=== PATIENT | female | born 1970 | race Caucasian/White ===

== ENCOUNTER 2017-10-24 12:37 | Emergency (ER) | payer OTHER ==
[2017-10-24 13:18] VITALS: BP 144/68; PULSE 95; TEMP 98; BMI 33.5
[2017-10-24] MEDS ORDERED: IBUPROFEN 600 MG TABLET (FP) PO ONE ×2 (14:19→14:27)
--- NOTE | 2017-10-24 14:40 | PDOC ---
History of Present Illness - General Chief Complaint: Pain Stated Complaint: LEG PAIN Time Seen by Provider: 10/24/17 14:17 History Source: Patient Exam Limitations: No Limitations - History of Present Illness Initial Comments: 10/24/17 14:32 46-year-old female presents to the emergency room with complaints of left Calf pain and left colbert pain for the past 2 days worsened with ambulation. Patient denies swelling of the leg, redness of the leg, injury to the leg or radiation of pain. Patient also denies recent surgery, or sedentary lifestyle, smoking history, exogenous estrogen usage, or recent travel. Patient also denies any coagulation disorders. Timing/Duration: other (2 days) Severity: mild Associated Symptoms: reports: denies symptoms Past History - Travel Traveled outside of the country in the last 30 days: No - Past Medical History Allergies/Adverse Reactions: Allergies Allergy/AdvReac Type Severity Reaction Status Date / Time No Known Allergies Allergy Verified 10/24/17 13:05 Home Medications: Ambulatory Orders NK [No Known Home Medication] 10/24/17 COPD: No - Suicide/Smoking/Psychosocial Hx Smoking History: Never smoked Have you smoked in the past 12 months: No Information on smoking cessation initiated: No Hx Alcohol Use: No Drug/Substance Use Hx: No Substance Use Type: None Patient Lives Alone: No Lives with/in: spouse/SO Review of Systems - Review of Systems Able to Perform ROS?: Yes Constitutional: No: Symptoms Reported HEENTM: No: Symptoms Reported Respiratory: No: Symptoms reported Musculoskeletal: Yes: Muscle Pain (left calf and colbert) Integumentary: No: Symptoms Reported Neurological: No: Symptoms reported Hematologic/Lymphatic: No: Symptoms Reported *Physical Exam - Vital Signs Last Vital Signs Temp Pulse Resp BP Pulse Ox 98.0 F 95 H 18 144/68 100 10/24/17 13:11 10/24/17 13:11 10/24/17 13:11 10/24/17 13:11 10/24/17 13:11 - Physical Exam General Appearance: Yes: Nourished, Appropriately Dressed. No: Apparent Distress Respiratory/Chest: positive: Lungs Clear, Normal Breath Sounds. negative: Respiratory Distress, Accessory Muscle Use Cardiovascular: positive: Regular Rhythm, Regular Rate. negative: Murmur Extremity: positive: Normal Capillary Refill, Normal Inspection, Normal Range of Motion, Tender (left calf and left tibialis anterior) Integumentary: positive: Normal Color, Warm, Moist (ambulatory) Neurologic: positive: Motor Strength 5/5 ED Treatment Course - RADIOLOGY Radiology Studies Ordered: Category Date Time Status DUPLEX VASCUL US-1 LEG [US] Stat Ultrasound 10/24/17 14:19 Ordered Medical Decision Making - Medical Decision Making 10/24/17 15:10 Patient with left calf and left anterior colbert pain. Patient negative Wells criteria but ordered for DVT study due to patient's clinical presentation.Motrin ordered 10/24/17 15:30 Ultrasound negative for DVT. There is no obvious superficial thrombophlebitis noted. Patient be discharged home with recommendations to take Motrin and apply ice to the affected area along with gentle massage. Patient states feeling better after receiving Motrin *DC/Admit/Observation/Transfer Diagnosis at time of Disposition: Leg pain, left - Discharge Dispostion Disposition: HOME Condition at time of disposition: Improved - Referrals Referrals: Ernie Madrid MD [Primary Care Provider] - - Patient Instructions Printed Discharge Instructions: DI for Leg Pain Additional Instructions: Please take Motrin 600 mg every 8 hours for adequate pain control. May apply ice to the affected area. Also gentle massage may improve symptoms. - Post Discharge Activity
== END 2017-10-24 15:31 | disposition home or self-care (01) ==
LOC: JER 12:37 → JERFT 12:37
DX: M79.662 Pain in left lower leg (principal); M79.1 Myalgia
CPT/HCPCS: 93971-TC; 99281-25

== ENCOUNTER 2018-07-11 18:07 | Emergency (ER) | payer OTHER ==
[2018-07-11 18:22] VITALS: BMI 33.0
--- NOTE | 2018-07-11 19:00 | PDOC ---
History of Present Illness - General Chief Complaint: Vaginal Bleeding Stated Complaint: VAGINAL BLEEDING/9 WKS Time Seen by Provider: 07/11/18 18:59 History Source: Patient, Neon Tube Pumper Used Exam Limitations: Language Barrier - History of Present Illness Initial Comments: 07/11/18 20:03 47-year-old female A0 with no past medical history who is 9 weeks presents to emergency department complaining of vaginal bleeding since 2:30 PM today when she was making food for her son. She states the bleeding started as spotting and she has only used one pad. She admits to clotting. She admits to suprapubic and pelvic pain, which she describes as cramping, radiating to her back, no alleviating or aggravating factors. She was last seen by her OBGYN, Dr. Charles, two weeks ago, that is when she found out she was . Pt denies blood thinner use. OBGYN - Dr. Charles Allergies - NKDA Past History - Past Medical History Allergies/Adverse Reactions: Allergies Allergy/AdvReac Type Severity Reaction Status Date / Time No Known Allergies Allergy Verified 07/11/18 18:20 Home Medications: Ambulatory Orders NK [No Known Home Medication] 10/24/17 COPD: No CHF: No Other medical history: - Suicide/Smoking/Psychosocial Hx Smoking History: Never smoked Have you smoked in the past 12 months: No Information on smoking cessation initiated: No Hx Alcohol Use: No Drug/Substance Use Hx: No Substance Use Type: None Review of Systems - Review of Systems Able to Perform ROS?: Yes Comments:: 07/11/18 20:04 General: denies fever, chills, night sweats, generalized weakness. HEENT: denies sore throat, rhinorrhea, ear pain. Heart: denies chest pain, palpitations, syncope, lower extremity swelling, diaphoresis. Respiratory: denies shortness of breath, cough, sputum production, hemoptysis. Abdomen: admits to abdominal pain. denies nausea, vomiting, diarrhea, constipation, blood in stool. : admits to vaginal bleeding, pelvic pain. denies dysuria, increased urinary frequency, hematuria, urinary incontinence, flank pain. Back: admits to back pain. Musculoskeletal: denies joint pain, muscle pain, joint swelling. Neurological: denies headache, dizziness, numbness, tingling, weakness. Skin: denies rash, laceration, abrasion. *Physical Exam - Vital Signs Last Vital Signs Temp Pulse Resp BP Pulse Ox 98.5 F 90 16 128/86 100 07/11/18 18:20 07/11/18 18:20 07/11/18 18:20 07/11/18 18:20 07/11/18 18:20 - Physical Exam Comments: 07/11/18 20:05 Constitutional: Well-nourished, Well-developed, appearing stated age. HEENT: head is normocephalic, atraumatic. EOMI. PERRLA. Neck: supple. Full ROM. Heart: regular rhythm. no murmurs, rubs or gallops. Lungs: clear to auscultation bilaterally. no crackles, rhonchi or wheezing. no stridor. Abdomen: soft, nontender. normal bowel sounds. no rebound, guarding, masses. Pelvic: normal external genitalia. gross bright red blood with clots oozing from the vagina. speculum examination was performed, pooling of blood was noted in the vaginal vault, the cervix was unable to be visualized. bi-manual examination was performed. no adnexal tenderness. no CMT. was not able to ascertain if the cervix is open or closed. Extremities: Peripheral pulses intact. No lower extremity edema. Neurological: CN 2-12 grossly intact. Moves all four extremities. Psych: awake, alert, oriented x3. Follows commands. Answers questions appropriately. ED Treatment Course - LABORATORY CBC & Chemistry Diagram: 07/11/18 23:24 07/11/18 19:16 Medical Decision Making - Medical Decision Making 07/11/18 20:07 47 year old female A0 9 weeks presented to ED for vaginal bleeding. No shortness of breath, lightheadedness, syncope, pre-syncope. Initial Vital Signs Temp Pulse Resp BP Pulse Ox 98.5 F 90 16 128/86 100 07/11/18 18:20 07/11/18 18:20 07/11/18 18:20 07/11/18 18:20 07/11/18 18:20 Afebrile. No tachycardia. No tachypnea. No hypotension. No hypoxia. Concern for miscarriage. - Pending bHCG - Pending TVUS Concern for anemia - Pending CBC - Pending coags, type and screen x2 07/11/18 21:06 CBC WBC 11.3 K/mm3 (4.0-10.0) H 07/11/18 19:16 RBC 4.51 M/mm3 (3.60-5.2) 07/11/18 19:16 Hgb 13.5 GM/dL (10.7-15.3) 07/11/18 19:16 Hct 41.1 % (32.4-45.2) 07/11/18 19:16 MCV 91.2 fl (80-96) 07/11/18 19:16 MCH 29.9 pg (25.7-33.7) 07/11/18 19:16 MCHC 32.8 g/dl (32.0-36.0) 07/11/18 19:16 RDW 13.9 % (11.6-15.6) 07/11/18 19:16 Plt Count 327 K/MM3 (134-434) 07/11/18 19:16 MPV 8.8 fl (7.5-11.1) 07/11/18 19:16 Absolute Neuts (auto) 8.8 K/mm3 (1.5-8.0) H 07/11/18 19:16 Neutrophils % 77.5 % (42.8-82.8) 07/11/18 19:16 Lymphocytes % 15.2 % (8-40) 07/11/18 19:16 Monocytes % 6.4 % (3.8-10.2) 07/11/18 19:16 Eosinophils % 0.7 % (0-4.5) 07/11/18 19:16 Basophils % 0.2 % (0-2.0) 07/11/18 19:16 Nucleated RBC % 0 % (0-0) 07/11/18 19:16 Leukocytosis with left shift. - Most likely due to acute inflammation from potential active miscarriage - No fever, no chills, no body aches No anemia CMP Sodium 138 mmol/L (136-145) 07/11/18 19:16 Potassium 4.2 mmol/L (3.5-5.1) 07/11/18 19:16 Chloride 107 mmol/L (98-107) 07/11/18 19:16 Carbon Dioxide 24 mmol/L (21-32) 07/11/18 19:16 Anion Gap 8 MMOL/L (8-16) 07/11/18 19:16 BUN 8 mg/dL (7-18) 07/11/18 19:16 Creatinine 0.8 mg/dL (0.55-1.3) 07/11/18 19:16 Creat Clearance w eGFR > 60 (>60) 07/11/18 19:16 Random Glucose 133 mg/dL (74-106) H 07/11/18 19:16 Calcium 9.6 mg/dL (8.5-10.1) 07/11/18 19:16 Total Bilirubin 0.5 mg/dL (0.2-1) 07/11/18 19:16 AST 14 U/L (15-37) L 07/11/18 19:16 ALT 19 U/L (13-61) 07/11/18 19:16 Alkaline Phosphatase 72 U/L (45-117) 07/11/18 19:16 Total Protein 8.1 g/dl (6.4-8.2) 07/11/18 19:16 Albumin 3.9 g/dl (3.4-5.0) 07/11/18 19:16 Beta HCG, Quant 8328.8 mIU/ml 07/11/18 19:16 INR, PTT INR 1.08 (0.83-1.09) 07/11/18 19:16 No coagulopathy. 07/11/18 22:47 TVUS report - No intrauterine gestation. within the endocervical canal there is some heterogeneous hypoechoic material without obvious internal flow, suggesting blood products. Pt reassessed, she states she is feeling better, that the bleeding is about the same. - Will repeat Hgb and reassess 07/11/18 23:40 CBC WBC 15.1 K/mm3 (4.0-10.0) H 07/11/18 23:24 RBC 3.85 M/mm3 (3.60-5.2) 07/11/18 23:24 Hgb 11.6 GM/dL (10.7-15.3) 07/11/18 23:24 Hct 34.9 % (32.4-45.2) D 07/11/18 23:24 MCV 90.8 fl (80-96) 07/11/18 23:24 MCH 30.2 pg (25.7-33.7) 07/11/18 23:24 MCHC 33.3 g/dl (32.0-36.0) 07/11/18 23:24 RDW 13.9 % (11.6-15.6) 07/11/18 23:24 Plt Count 313 K/MM3 (134-434) 07/11/18 23:24 MPV 8.6 fl (7.5-11.1) 07/11/18 23:24 Absolute Neuts (auto) 8.8 K/mm3 (1.5-8.0) H 07/11/18 19:16 Neutrophils % 77.5 % (42.8-82.8) 07/11/18 19:16 Lymphocytes % 15.2 % (8-40) 07/11/18 19:16 Monocytes % 6.4 % (3.8-10.2) 07/11/18 19:16 Eosinophils % 0.7 % (0-4.5) 07/11/18 19:16 Basophils % 0.2 % (0-2.0) 07/11/18 19:16 Nucleated RBC % 0 % (0-0) 07/11/18 19:16 Repeat Hgb 2 points lower. OBGYN production engine repairer paged. 07/11/18 23:[address] Villanueva, OB production engine repairer, who states the patient should receive 20 units of pitocin in 1000 cc NS, running at 200 cc/hour. - Ordered above. 07/11/18 23:51 I spoke with the patient about her results, and the recommendations by Dr. Villanueva, she agrees to stay for pitocin drip. She states that her bleeding has decreased. 07/12/18 00:07 I signed the patient out to Dr. Diez, who will assume care for the patient while she is in the Emergency Department. *DC/Admit/Observation/Transfer Diagnosis at time of Disposition: Vaginal bleeding, Miscarriage Qualifiers: Weeks of gestation: 9 weeks Qualified Code(s): Z3A.09 - 9 weeks gestation of - Discharge Dispostion Disposition: HOME Condition at time of disposition: Stable - Referrals Referrals: Anibal Bowers MD [Staff Physician] - - Patient Instructions Printed Discharge Instructions: Dealing With Miscarriage, DI for Miscarriage Additional Instructions: You were seen today for vaginal bleeding during . Your blood level (hemoglobin) dropped two points from when you initially were seen and a few hours later. (13.5 to 11.6) You were treated with a Pitocin drip, per Dr. Villanueva's (our OBGYN production engine repairer) recommendations. Your hormone (bHCG) level was 8328.8 Your transvaginal ultrasound revealed no in your uterus and blood products in the endocervical canal. This is consistent with miscarriage. You need your hormone level rechecked in 48 hours - Follow up with your OBGYN, More Charles, in 48 hours to have your level rechecked. - If you cannot get an appointment with your OBGYN in 48 hours return to the Emergency Department to have the level rechecked - It is very important that you follow up, so that you can be properly medically evaluated. Return to the Emergency Department for chest pain, palpitations, shortness of breath, lightheadedness, passing out, paleness, fever, chills, increased bleeding or any other new, worsening or concerning symptoms. TRANSLATED VIA [employer] TRANSLATE: Hoy te vieron por sangrado vaginal vick el embarazo. Springer nivel de maxine (hemoglobina) baj dos puntos desde la primera vez que lo vieron y unas horas ms tarde. (13.5 a 11.6) Fue tratado con un goteo de Pitocin, segn las recomendaciones del Dr. Villanueva ( nuestro OBGYN de [place]). Springer nivel de hormona del embarazo (bHCG) fue 8328.8 Springer ultrasonido transvaginal no revel ningn embarazo en springer tero y productos sanguneos en el canal endocervical. [place] es consistente con el aborto involuntario. Necesita que springer nivel de hormona del embarazo vuelva a controlarse en 48 horas - Shivam un seguimiento con springer gineclogo, Sharla Charles, en 48 horas para que le vuelvan a revisar springer nivel de embarazo. - Si no puede obtener shama elzbieta con springer gineclogo en 48 horas, regrese al Departamento de Emergencias para que se vuelva a verificar el nivel. - Es muy importante que shivam un seguimiento, para que pueda ser evaluado mdicamente adecuadamente. Regrese al Departamento de Emergencias para el dolor en el pecho, palpitaciones , falta de aliento, mareos, desmayo, palidez, fiebre, escalofros o cualquier otro sntoma nuevo, que empeore o que se relacione con ellos. - Post Discharge Activity
[2018-07-11 19:27] LABS: BASO % 0.2 % (0-2.0); EOS % 0.7 % (0-4.5); HEMATOCRIT 41.1 % (32.4-45.2); HEMOGLOBIN 13.5 GM/dL (10.7-15.3); LYMPH % 15.2 % (8-40); MCH 29.9 pg (25.7-33.7); MCHC 32.8 g/dl (32.0-36.0); MEAN CELL VOLUME 91.2 fl (80-96); MEAN PLT VOLUME 8.8 fl (7.5-11.1); MONO % 6.4 % (3.8-10.2); NEUT % 77.5 % (42.8-82.8); PLATELET COUNT 327 K/MM3 (134-434); RBC 4.51 M/mm3 (3.60-5.2); RDW 13.9 % (11.6-15.6); WHITE BLOOD COUNT 11.3 K/mm3 (4.0-10.0)
[2018-07-11 19:40] LABS: INR 1.08 (0.83-1.09); PROTHROMBIN TIME (PATIENT) 12.8 SEC (9.7-13.0)
[2018-07-11 19:43] LABS: ACTIVATED PTT 26.7 SECONDS (25.2-36.5)
[2018-07-11] MEDS ORDERED: ACETAMINOPHEN 1000 MG/100 ML VIAL (NON FORMULARY) IVPB ONE (19:45)
[2018-07-11] MEDS ORDERED: SODIUM CHLORIDE 1,000 ML IV STA (19:45)
[2018-07-11 19:47] LABS: ALBUMIN 3.9 g/dl (3.4-5.0); ALK PHOS 72 U/L (45-117); ANION GAP 8 MMOL/L (8-16); BILIRUBIN,TOTAL 0.5 mg/dL (0.2-1); BLOOD UREA NITROGEN 8 mg/dL (7-18); CALCIUM 9.6 mg/dL (8.5-10.1); CHLORIDE 107 mmol/L (98-107); CO2 24 mmol/L (21-32); CREATININE 0.8 mg/dL (0.55-1.3); GLUCOSE,RANDOM 133 mg/dL (74-106); POTASSIUM 4.2 mmol/L (3.5-5.1); SGOT/AST 14 U/L (15-37); SGPT/ALT 19 U/L (13-61); SODIUM 138 mmol/L (136-145); TOT PROT 8.1 g/dl (6.4-8.2)
[2018-07-11] MEDS ORDERED: ACETAMINOPHEN INJECTION 100 ML IVPB ONE (20:06)
--- NOTE | 2018-07-11 20:13 | PDOC ---
Attending Attestation - Resident Resident Name: ElishaDory - ED Attending Attestation I have performed the following: I have examined & evaluated the patient, The case was reviewed & discussed with the resident, I agree w/resident's findings & plan, Exceptions are as noted - HPI HPI: The patient is a 47 year old female, A0, 9 weeks , with no significant PMH who presents to the emergency department with vaginal bleeding since 2:30 PM. Patient did notice blood clots and reports associated suprapubic and pelvic pain. Patient saw her ETHNOGRAPHER 2 weeks ago at which time she found out she was . The patient denies chest pain, shortness of breath, headache and dizziness. Denies fever, chills, nausea, vomit, diarrhea and constipation. Denies dysuria, frequency, urgency and hematuria. Allergies: NKA Past surgical history: None reported. Social history: No reported alcohol, drug or cigarette alcohol use. ETHNOGRAPHER: Dr. Charles - Physicial Exam PE: 07/12/18 00:02 on exam no distress abd sfot nontender pelvic revealed large amt of blood in vag vault - Medical Decision Making 07/11/18 20:37 hbg dropped 2pts dw retail sales clerk - recommends pitocin gtt will reassess and repeat hbg if still bleeding 07/12/18 04:51 pt feeling better bleeding stopped will dc with retail sales clerk fu as outpatient return precautions were discussed
[2018-07-11 23:30] LABS: HEMATOCRIT 34.9 % (32.4-45.2); HEMOGLOBIN 11.6 GM/dL (10.7-15.3); MCH 30.2 pg (25.7-33.7); MCHC 33.3 g/dl (32.0-36.0); MEAN CELL VOLUME 90.8 fl (80-96); MEAN PLT VOLUME 8.6 fl (7.5-11.1); PLATELET COUNT 313 K/MM3 (134-434); RBC 3.85 M/mm3 (3.60-5.2); RDW 13.9 % (11.6-15.6); WHITE BLOOD COUNT 15.1 K/mm3 (4.0-10.0)
[2018-07-11] MEDS ORDERED: OXYTOCIN 20 UNITS in 0.9% NS 20 UNIT/1,000 ML INFUS.BAG IV SCH (23:45)
--- NOTE | 2018-07-12 00:09 | PDOC ---
*Physical Exam - Vital Signs Last Vital Signs Temp Pulse Resp BP Pulse Ox 98.5 F 109 H 18 108/73 100 07/11/18 18:20 07/11/18 21:49 07/11/18 21:49 07/11/18 21:49 07/11/18 21:49 07/12/18 00:05 Care endorsed to me by Dr. Tello at the end of her shift. The patient is a 47 YOF who is 9 weeks , who had an onset of heavy vaginal bleeding today. Her Hgb was initially measured to be 13.5 here in the ED, but it dropped to 11.6 during our care. US showed no IUP. Dr. Bowers was called and recommended Pitocin drip. Repeat vitals are pending now. If continued bleeding after Pitocin , will need to repeat H/H again. If she stops bleeding, can send home with outpatient f/u tomorrow. ED Treatment Course - LABORATORY CBC & Chemistry Diagram: 07/11/18 23:24 07/11/18 19:16 - ADDITIONAL ORDERS Additional order review: Laboratory Results 07/11/18 07/11/18 07/11/18 19:20 19:16 19:16 PT with INR INR PTT (Actin FS) Sodium Potassium Chloride Carbon Dioxide Anion Gap BUN Creatinine Creat Clearance w eGFR Random Glucose Calcium Total Bilirubin AST ALT Alkaline Phosphatase Total Protein Albumin Beta HCG, Quant 8328.8 Anti-A Titer Cancelled Blood Type Cancelled O POSITIVE Antibody Screen Cancelled Negative 07/11/18 07/11/18 19:16 19:16 PT with INR 12.80 INR 1.08 PTT (Actin FS) 26.7 Sodium 138 Potassium 4.2 Chloride 107 Carbon Dioxide 24 Anion Gap 8 BUN 8 Creatinine 0.8 Creat Clearance w eGFR > 60 Random Glucose 133 H Calcium 9.6 Total Bilirubin 0.5 AST 14 L ALT 19 Alkaline Phosphatase 72 Total Protein 8.1 Albumin 3.9 Beta HCG, Quant Anti-A Titer Blood Type Antibody Screen 07/11/18 07/11/18 23:24 19:16 RBC 3.85 4.51 MCV 90.8 91.2 MCHC 33.3 32.8 RDW 13.9 13.9 MPV 8.6 8.8 Neutrophils % 77.5 Lymphocytes % 15.2 Monocytes % 6.4 Eosinophils % 0.7 Basophils % 0.2 - Medications Given in the ED: ED Medications Discontinued Medications Generic Name Dose Route Start Last Admin Trade Name Jenna PRN Reason Stop Dose Admin Acetaminophen 1,000 mg 07/11/18 19:45 07/11/18 21:50 Ofirmev Injection - IVPB 07/11/18 19:46 1,000 mg ONCE ONE Administration Sodium Chloride 1,000 mls @ 1,000 mls/hr 07/11/18 19:45 07/11/18 23:45 Normal Saline - IV 07/11/18 20:44 1,000 mls/hr ASDIR STA Administration Medical Decision Making - Medical Decision Making Laboratory Tests 07/11/18 07/11/18 07/11/18 19:16 19:16 19:16 WBC 11.3 H RBC 4.51 Hgb 13.5 Hct 41.1 MCV 91.2 MCH 29.9 MCHC 32.8 RDW 13.9 Plt Count 327 MPV 8.8 Absolute Neuts (auto) 8.8 H Neutrophils % 77.5 Lymphocytes % 15.2 Monocytes % 6.4 Eosinophils % 0.7 Basophils % 0.2 Nucleated RBC % 0 PT with INR 12.80 INR 1.08 PTT (Actin FS) 26.7 Sodium 138 Potassium 4.2 Chloride 107 Carbon Dioxide 24 Anion Gap 8 BUN 8 Creatinine 0.8 Creat Clearance w eGFR > 60 Random Glucose 133 H Calcium 9.6 Total Bilirubin 0.5 AST 14 L ALT 19 Alkaline Phosphatase 72 Total Protein 8.1 Albumin 3.9 Beta HCG, Quant Anti-A Titer Blood Type Antibody Screen 07/11/18 07/11/18 07/11/18 19:16 19:16 19:20 WBC RBC Hgb Hct MCV MCH MCHC RDW Plt Count MPV Absolute Neuts (auto) Neutrophils % Lymphocytes % Monocytes % Eosinophils % Basophils % Nucleated RBC % PT with INR INR PTT (Actin FS) Sodium Potassium Chloride Carbon Dioxide Anion Gap BUN Creatinine Creat Clearance w eGFR Random Glucose Calcium Total Bilirubin AST ALT Alkaline Phosphatase Total Protein Albumin Beta HCG, Quant 8328.8 Anti-A Titer Cancelled Blood Type O POSITIVE Cancelled Antibody Screen Negative Cancelled 07/11/18 23:24 WBC 15.1 H RBC 3.85 Hgb 11.6 Hct 34.9 D MCV 90.8 MCH 30.2 MCHC 33.3 RDW 13.9 Plt Count 313 MPV 8.6 Absolute Neuts (auto) Neutrophils % Lymphocytes % Monocytes % Eosinophils % Basophils % Nucleated RBC % PT with INR INR PTT (Actin FS) Sodium Potassium Chloride Carbon Dioxide Anion Gap BUN Creatinine Creat Clearance w eGFR Random Glucose Calcium Total Bilirubin AST ALT Alkaline Phosphatase Total Protein Albumin Beta HCG, Quant Anti-A Titer Blood Type Antibody Screen 07/12/18 02:42 At this time bleeding has completely resolved on Pitocin drip. There is no bleeding in feminine pad and none on bimanual exam. This patient has gotten significant relief of symptoms while in the ED. Vital Signs Temperature 98.1 F 07/12/18 02:55 Pulse Rate 82 07/12/18 02:55 Respiratory Rate 17 07/12/18 02:55 Blood Pressure 106/68 07/12/18 02:55 O2 Sat by Pulse Oximetry (%) 100 07/12/18 02:55 On last reassessment, vitals are wnl, pain is reasonably controlled, and exam is benign. Workup is not concerning for emergency-level pathology at this time. This patient is appropriate for discharge with close outpatient follow up. They are comfortable with this plan and will follow up with their primary care provider in 1-3 days. Referral information is given for Dr. Bowers, and patient has an appointment scheduled already for Thursday (she states). Specific return precautions are discussed and they will come back to the ER if necessary. *DC/Admit/Observation/Transfer Diagnosis at time of Disposition: Vaginal bleeding, Miscarriage Qualifiers: Weeks of gestation: 9 weeks Qualified Code(s): Z3A.09 - 9 weeks gestation of - Discharge Dispostion Disposition: HOME Condition at time of disposition: Stable Decision to Admit order: No - Referrals Referrals: Anibal Bowers MD [Staff Physician] - - Patient Instructions Printed Discharge Instructions: Dealing With Miscarriage, DI for Miscarriage Additional Instructions: You were seen today for vaginal bleeding during . Your blood level (hemoglobin) dropped two points from when you initially were seen and a few hours later. (13.5 to 11.6) You were treated with a Pitocin drip, per Dr. Villanueva's (our OBGYN network control supervisor) recommendations. Your hormone (bHCG) level was 8328.8 Your transvaginal ultrasound revealed no in your uterus and blood products in the endocervical canal. This is consistent with miscarriage. You need your hormone level rechecked in 48 hours - Follow up with your OBGYN, More Charles, in 48 hours to have your level rechecked. - If you cannot get an appointment with your OBGYN in 48 hours return to the Emergency Department to have the level rechecked - It is very important that you follow up, so that you can be properly medically evaluated. Return to the Emergency Department for chest pain, palpitations, shortness of breath, lightheadedness, passing out, paleness, fever, chills, increased bleeding or any other new, worsening or concerning symptoms. TRANSLATED VIA [employer] TRANSLATE: Hoy te vieron por sangrado vaginal vick el embarazo. Springer nivel de maxine (hemoglobina) baj dos puntos desde la primera vez que lo vieron y unas horas ms tarde. (13.5 a 11.6) Fue tratado con un goteo de Pitocin, segn las recomendaciones del Dr. Villanueva ( nuestro OBGYN de [facility]). Springer nivel de hormona del embarazo (bHCG) fue 8328.8 Springer ultrasonido transvaginal no revel ningn embarazo en springer tero y productos sanguneos en el canal endocervical. [place] es consistente con el aborto involuntario. Necesita que springer nivel de hormona del embarazo vuelva a controlarse en 48 horas - Shivam un seguimiento con springer gineclogo, Sharla Charles, en 48 horas para que le vuelvan a revisar springer nivel de embarazo. - Si no puede obtener shama elzbieta con springer gineclogo en 48 horas, regrese al Departamento de Emergencias para que se vuelva a verificar el nivel. - Es muy importante que shivam un seguimiento, para que pueda ser evaluado mdicamente adecuadamente. Regrese al Departamento de Emergencias para el dolor en el pecho, palpitaciones , falta de aliento, mareos, desmayo, palidez, fiebre, escalofros o cualquier otro sntoma nuevo, que empeore o que se relacione con ellos. - Post Discharge Activity
[2018-07-12 02:56] VITALS: BP 106/68; PULSE 82; TEMP 98.1
== END 2018-07-12 03:28 | disposition home or self-care (01) ==
LOC: JER 18:07
PROC: 3E0337Z Introduction of Electrolytic and Water Balance Substance into Peripheral Vein, Percutaneous Approach (ICD-10-PCS; principal; 2018-07-11)
PROC: 3E033NZ Introduction of Analgesics, Hypnotics, Sedatives into Peripheral Vein, Percutaneous Approach (ICD-10-PCS; 2018-07-11)
PROC: 3E033GC Introduction of Other Therapeutic Substance into Peripheral Vein, Percutaneous Approach (ICD-10-PCS; 2018-07-11)
DX: O26.891 Other specified pregnancy related conditions, first trimester (principal); O02.1 Missed abortion; Z3A.09 9 weeks gestation of pregnancy
CPT/HCPCS: 36415; 76817-TC; 80053; 84702; 85025; 85027; 85610; 85730; 86850; 86900; 86901; 96361; 96365; 96375; 99283-25; J0131; J7030

== ENCOUNTER 2022-09-17 15:12 | Emergency (ER) | payer OTHER ==
[2022-09-17 15:55] VITALS: BP 121/71; PULSE 95; RESP 20; TEMP 98; BMI 33.2
== END 2022-09-17 18:06 | disposition home or self-care (01) ==
LOC: JER 15:12 → JERFT 15:12
DX: N64.4 Mastodynia (principal)
CPT/HCPCS: 99281-25

== ENCOUNTER 2023-11-08 20:35 | Emergency (ER) | payer OTHER ==
[2023-11-08 20:50] VITALS: BP 100/62; PULSE 97; RESP 18; TEMP 97.9; BMI 34.8
[2023-11-08] MEDS ORDERED: IBUPROFEN 600 MG TABLET (FP) PO ONE ×2 (22:04→22:08)
== END 2023-11-08 22:35 | disposition home or self-care (01) ==
LOC: JER 20:35
DX: R07.89 Other chest pain (principal)
CPT/HCPCS: 71046-TC-FY; 93005; 93010; 99284-25